=== PATIENT | male | born 1950 | race Caucasian/White ===

== ENCOUNTER 2018-06-11 20:03 | Outpatient (CLI) | payer MEDICARE, OTHER | END 2018-06-12 06:40 | disposition home or self-care (01) | LOC: SLEEP 20:03 | PROVIDERS: ATTEND Otolaryngology Otolaryngology/Facial Plastic Surgery | DX: G47.33 Obstructive sleep apnea (adult) (pediatric) (principal) | CPT/HCPCS: 95811 ==

== ENCOUNTER → 2019-09-30 | Outpatient (CLI) | payer MEDICARE, OTHER ==
[~2019-09-30] VITALS: Ht 185 cm; Wt 96.0 kg
[~2019-09-30] MED LIST: CATHETER FLUSH 10 ML SYR IV PRN
--- NOTE | 2019-10-02 12:32 | STRESS TEST ---
DATE OF SERVICE: 09/30/2019 RESTING AND POST EXERCISE TECHNETIUM-99M TETROFOSMIN SPECT CT IMAGING ORDERING PHYSICIAN: Dr. Munroe. CLINICAL DIAGNOSIS: Chest discomfort. Baseline images were carried out after injection of 10.31 mCi of technetium-99m Tetrofosmin. This was followed by exercise on a treadmill. Mata protocol was employed. Heart rate response to exercise was normal. Blood pressure response to exercise was somewhat hypertensive. No significant arrhythmia was seen. There did not appear to be significant ST segment depression with exercise. The patient attained 89% of maximum predicted heart rate and 11.5 METS of workload. Test was stopped on account of fatigue. After the patient had attained 85% of maximum predicted heart rate, 29.7 mCi of technetium-99m Tetrofosmin were injected and the exercise was continued for almost another minute. Review of images at rest and following stress does not indicate any distinct perfusion defects consistent with significant myocardial ischemia or infarction. Some degree of diaphragmatic attenuation is seen both at rest and following stress. Gated images show normal global left ventricular systolic function with normal regional wall motion, including the diaphragmatic wall of the left ventricle. Left ventricular ejection fraction is calculated to be 69%. Left ventricular end diastolic volume is 55 mL. TID is absent (0.95). CONCLUSIONS: 1. No evidence of any significant myocardial ischemia or infarction on this study. 2. Normal regional wall motion. 3. Normal global left ventricular systolic function with a calculated ejection fraction of 69%. Job ID: [id number] DocumentID: [id number] Dictated Date: 10/02/2019 09:47:54 Director Patient Financial Services Date: 10/02/2019 12:31:05 Dictated By: CARLOS MUNROE MD, MA, FACP, FACC,
== END ==
LOC: CARD 11:15
PROVIDERS: ATTEND Internal Medicine Cardiovascular Disease
DX: R07.89 Other chest pain (principal)
CPT/HCPCS: 78452; 93017; A9502